=== PATIENT | male | born 1995 | race Caucasian/White ===

== ENCOUNTER → 2016-11-17 | Outpatient (CLI) | payer BC ==
--- NOTE | 2016-11-18 11:08 | ECHOF ---
Referral Reason:R01.1 Heart Murmur MEASUREMENTS -------- HEIGHT: 180.3 cm WEIGHT: 81.6 kg BP: 146/86 RVIDd: 2.4 cm (< 3.3) IVSd: 1.0 cm (0.6 - 1.1) LVIDd: 4.5 cm (3.9 - 5.3) LVPWd: 1.2 cm (0.6 - 1.1) EDV(Teich): 92 ml IVSs: 1.6 cm LVIDs: 2.6 cm LVPWs: 1.6 cm %IVS Thck: 61 % ESV(Teich): 24 ml EF(Teich): 74 % %FS: 43 % SV(Teich): 68 ml LALs A4C: 4.3 cm LAAs A4C: 15.1 cm LAESV A-L A4C: 45 ml LAESV MOD A4C: 38 ml LALs A2C: 4.3 cm LAAs A2C: 14.7 cm LAESV A-L A2C: 42 ml LAESV MOD A2C: 40 ml LAESV(A-L): 44 ml LAESV Index (A-L): 21.76 ml/m Ao Diam: 2.9 cm (2.0 - 3.7) AV Cusp: 1.9 cm (1.5 - 2.6) LA Diam: 2.9 cm (2.7 - 3.8) MV EXCURSION: 19.436 mm (> 18.000) MV EF SLOPE: 143 mm/s (70 - 150) EPSS: 0.5 cm MV E Klaus: 1.17 m/s MV DecT: 308 ms MV Dec Catron: 3.8 m/s MV A Klaus: 0.55 m/s MV E/A Ratio: 2.14 MV PHT: 89 ms E/E': 5.78 E': 0.20 m/s AV Vmax: 1.41 m/s AV maxP.96 mmHg FINDINGS -------- Sinus rhythm. This was a technically good study. Overall left ventricular systolic function is normal with, an EF between 65 - 70 %. The right ventricle is normal in size and function. Normal LA size by volume 22+/-6 ml/m2. The right atrium is normal in size. Aortic valve is trileaflet and is mildly thickened. Trace to mild aortic regurgitation. There is no evidence of aortic stenosis. The mitral valve is normal. There is trace mitral regurgitation. Trace tricuspid regurgitation present. There is no evidence of pulmonary hypertension. The right ventricular systolic pressure, as measured by Doppler, is {RVSP}. Pulmonic valve appears structurally normal. The aortic root size is normal. The inferior vena cava is mildly dilated. The pericardium is normal. There is no pericardial effusion. CONCLUSIONS -------- 1. Sinus rhythm. 2. The right ventricular systolic pressure, as measured by Doppler, is {RVSP}. 3. The aortic root size is normal. 4. The inferior vena cava is mildly dilated. 5. There is no pericardial effusion. 6. This was a technically good study. 7. Overall left ventricular systolic function is normal with, an EF between 65 - 70 %. 8. Normal LA size by volume 22+/-6 ml/m2. 9. Aortic valve is trileaflet and is mildly thickened. 10. Trace to mild aortic regurgitation. 11. There is trace mitral regurgitation. 12. Trace tricuspid regurgitation present. 13. There is no evidence of pulmonary hypertension. [employer]: Marcus Carmen RDCS
== END | disposition home or self-care (01) ==
LOC: RADECHMAIN 15:34
PROVIDERS: ATTEND Family Medicine
DX: I35.8 Other nonrheumatic aortic valve disorders (principal); I51.7 Cardiomegaly; R01.1 Cardiac murmur, unspecified
CPT/HCPCS: 93306